=== PATIENT | female | born 1965 | race American Indian/Alaskan Native ===

== ENCOUNTER 2016-08-05 09:42 | Outpatient (CLI) | payer OTHER ==
--- NOTE | 2016-08-05 10:55 | XRay Report ---
Lumbar spine 3 views: History: Cannot stand on feet and legs. Findings: Normal height of vertebral bodies and intervertebral disc. Sclerotic articular surfaces with early degenerative changes. No fracture. No soft tissue calcification. Impression: Early degenerative changes lumbar spine.
--- NOTE | 2016-08-05 10:56 | XRay Report ---
Bilateral knee: History: Cannot stand on feet and legs. Findings: Narrowing of the medial and patellofemoral compartment of the knee joint. Sclerotic articular surfaces with peripheral osteophytes suggesting degenerative changes. No acute fracture. Suspicion of minimal joint effusion in suprapatellar region. Impression: Degenerative changes medial and patellofemoral compartment knee joint.
== END 2016-08-05 09:43 | disposition home or self-care (01) ==
LOC: XRAY 09:42
PROVIDERS: ATTEND Internal Medicine
DX: M17.0 Bilateral primary osteoarthritis of knee (principal); M47.896 Other spondylosis, lumbar region
CPT/HCPCS: 72100

== ENCOUNTER 2021-10-31 11:04 | Emergency (ER) | payer SELFPAY ==
[2021-10-31 12:37] VITALS: BP 182/98
--- NOTE | 2021-10-31 13:54 | Emergency Department Report ---
ED General Adult HPI - General Chief complaint: Extremity Problem,Nontraumatic Stated complaint: CHEST PAIN/LEG PAIN PUI?: No Time Seen by Provider: 10/31/21 13:45 Source: patient Mode of arrival: Ambulatory Limitations: No Limitations - History of Present Illness Initial comments: 56 YO COMES TO ER CO BLE PAIN. SHARP SHOOTING ALMOST NUMB LIKE SHE SAYS. NO INCONTINENCE. NO FEVER. PAIN DOES NOT WAKE HER FROM SLEEP SHE HAS HAD THIS FOR A LONG TIME BUT OVER THE LAST YEAR IT IS GETTING WORSE. -: Gradual, year(s) Location: lower extremity Severity scale (0 -10): 10 Quality: burning Improves with: none Worsens with: none Associated Symptoms: denies other symptoms. denies: confusion, chest pain, cough, diaphoresis, fever/chills, headaches, loss of appetite, malaise, nausea/vomiting, rash, seizure, shortness of breath, syncope, weakness Treatments Prior to Arrival: none - Related Data Previous Rx's Medication Instructions Recorded Last Taken Type Gabapentin 100 mg PO Q8HR #30 capsule 10/31/21 Unknown Rx Allergies Allergy/AdvReac Type Severity Reaction Status Date / Time No Known Allergies Allergy Unverified 08/05/16 09:49 ED Review of Systems ROS: Stated complaint: CHEST PAIN/LEG PAIN Other details as noted in HPI Comment: All other systems reviewed and negative ED Past Medical Hx - Past Medical History Previous Medical History?: Yes Additional medical history: OBESE. TENDONITIS - Surgical History Past Surgical History?: No - Family History Family history: other (FAM HX DM) - Social History Smoking Status: Never Smoker Substance Use Type: None - Medications Home Medications: Home Medications Medication Instructions Recorded Confirmed Last Taken Type Gabapentin 100 mg PO Q8HR #30 capsule 10/31/21 Unknown Rx ED Physical Exam - General Limitations: No Limitations General appearance: alert, in no apparent distress - Head Head exam: Present: atraumatic, normocephalic - Eye Eye exam: Present: normal appearance - ENT ENT exam: Present: mucous membranes moist - Neck Neck exam: Present: normal inspection - Respiratory Respiratory exam: Present: normal lung sounds bilaterally. Absent: respiratory distress - Cardiovascular Cardiovascular Exam: Present: regular rate, normal rhythm. Absent: systolic murmur, diastolic murmur, rubs, gallop - GI/Abdominal GI/Abdominal exam: Present: soft, normal bowel sounds - Extremities Exam Extremities exam: Present: normal inspection - Back Exam Back exam: Present: normal inspection - Neurological Exam Neurological exam: Present: alert, oriented X3 - Psychiatric Psychiatric exam: Present: normal affect, normal mood - Skin Skin exam: Present: warm, dry, intact, normal color. Absent: rash ED Course Vital Signs 10/31/21 12:32 Temperature 98.7 F Pulse Rate 94 H Respiratory 20 Rate Blood Pressure 182/98 [Right] O2 Sat by Pulse 100 Oximetry ED Medical Decision Making - Medical Decision Making Vital Signs 10/31/21 12:32 Temperature 98.7 F Pulse Rate 94 H Respiratory 20 Rate Blood Pressure 182/98 [Right] O2 Sat by Pulse 100 Oximetry A/C BLE PAIN NO TRAUMA NO FALL NO SWELLING AMBULATORY NEUROVASC INTACT DID NOT SEE PCP NOT DIABETIC NO HX BACK INJURY NEG STRAIGHT LEG RAISE PT STATES SHES APPLYING FOR DISABILITY AND ASKED ME TO DOCUMENT ALL OF MY FINDINGS VSS NO TACHYCARDIA NO HYPOTENSION NO FEVER DENIES CP DENIES SOB DC HOME WITH PCP FOLLOW UP FOR HER A/C PAIN. SHE VERBALIZES UNDERSTANDING OF PLAN OF CARE - Differential Diagnosis A/C PAIN Critical care attestation.: If time is entered above; I have spent that time in minutes in the direct care of this critically ill patient, excluding procedure time. ED Disposition Clinical Impression: Leg pain Disposition: 01 HOME / SELF CARE / HOMELESS Is pt being admited?: No Does the pt Need Aspirin: No Condition: Stable Instructions: Neuropathic Pain Additional Instructions: MED ORDERED TODAY OVER THE COUNTER MOTRIN AND TYLENOL CAN BE ALTERNATED FOR PAIN FOLLOW UP WITH PCP REFERRAL BELOW Referrals: HINA VILLEGAS MD [Staff Physician] - 3-5 Days Forms: Work/School Release Form(ED) Time of Disposition: 13:58
== END 2021-10-31 14:10 | disposition home or self-care (01) ==
LOC: ED 11:04
DX: M79.604 Pain in right leg (principal); M79.605 Pain in left leg
CPT/HCPCS: 99282